=== PATIENT | female | born 1970 | race African-American/Black ===

== ENCOUNTER → 2017-10-03 | Outpatient (CLI) | payer BC ==
--- NOTE | 2017-10-03 15:48 | RADIOLOGY REPORT (SQ) ---
EXAM DESCRIPTION: HYSTEROSALPINGOGRAM; HYSTERO CATH/INJECTION COMPLETED DATE/TIME: 10/03/2017 1:52 pm REASON FOR STUDY: INFERTILITY N97.9 FEMALE INFERTILITY, UNSPECIFIED COMPARISON: None. PROCEDURE: PRE-PROCEDURE: Procedure was explained to the patient. She was told to expect cramping du ring the procedure, and possible spotting post procedure. PROCEDURE: Under direct visual inspection, the cervix was cannulated with the hysterosalpingogram ca theter and contrast injected. Patient was pre-medicated for contrast allergy with oral Benadryl. She had no immediate complication s post injection of 8 mL of Isovue-300 into the endometrial cavity. TECHNIQUE: Temporal fluoroscopic images acquired during the procedure stored to PACS. FLUOROSCOPY TIME: Less than 5 seconds 15 images saved to PACS. LIMITATIONS: None. FINDINGS: UTERUS: No endometrial cavity synechia. There is some narrowing of the endocervical canal at the uterine -cervix junction. There is a small subcentimeter filling defect which could be a naveed yp or nabothian cyst. RIGHT ADNEXA: A short segment of the right fallopian tube near the uterine fundus is identified. Rem ainder of the right fallopian tube is not visualized. LEFT ADNEXA: Left fallopian tube fills with contrast. There is free spillage of contrast from left o vary. POST PROCEDURE: The patient tolerated the procedure with no adverse effects. IMPRESSION: Small polyp or nabothian cyst at the the cervix- uterine junction Normal endometrial canal. Patent left fallopian tube. Only a short segment of right fallopian tube near the uterine fundus was identified. COMMENT: Quality ID [id number]: Final reports for procedures using fluoroscopy that document radiation exp osure indices, or exposure time and number of fluorographic images (if radiation exposure indices are not available) TECHNICAL DOCUMENTATION: JOB ID: [id number] [employer]- All Rights Reserved
== END ==
LOC: RAD 12:42
PROVIDERS: ATTEND Specialist
DX: N97.9 Female infertility, unspecified (principal)
CPT/HCPCS: 58340; 74740